=== PATIENT | male | born 1940 ===

== ENCOUNTER 2016-12-04 10:25 | Inpatient (IN) | payer OTHER, SELFPAY ==
[2016-12-04 10:25] VITALS: BMI 32.8
[2016-12-04] MEDS ORDERED: Albuterol-Ipratrop 3 mg / 0.5 (3 ml) UD IH STA (10:54)
[2016-12-04] MEDS ORDERED: Albuterol-Ipratrop 3 mg / 0.5 (3 ml) UD INH STA ×2 (10:54→10:55)
[2016-12-04] MEDS ORDERED: Sodium Chloride 0.9% 500 ML IV STA (10:54)
--- NOTE | 2016-12-04 10:58 | ED PDOC ---
HPI: SOB/CHF/COPD Time Seen by Provider: 12/04/16 10:45 Chief Complaint (Nursing): Shortness Of Breath Chief Complaint (Provider): Shortness Of Breath History Per: Patient, Family () History/Exam Limitations: no limitations Onset/Duration Of Symptoms: Days (x5 days) Current Symptoms Are (Timing): Still Present Additional Complaint(s): 76 y/o male with a past medical history of hypertension and pulmonary fibrosis who presents to the emergency department accompanied by with a complaint of shortness of breath x5 days. Associated with chest pain, cough, headache ( not the worst experienced and only after coughing), sputum (white), generalized weakness, 4 episodes of diarrhea (non-bloody), 2 episodes of vomiting (non- bloody), nausea and loss of appetite. PMD: [facility] Past Medical History Reviewed: Historical Data, Nursing Documentation, Vital Signs Vital Signs: Last Vital Signs Temp 97.6 F 12/04/16 10:36 Pulse 81 12/04/16 10:36 Resp 26 H 12/04/16 10:56 BP 140/78 12/04/16 10:56 Pulse Ox 96 12/04/16 11:38 - Medical History PMH: HTN, Hypercholesterolemia Other PMH: pulm fibrosis - Family History Family History: States: Unknown Family Hx - Living Arrangements Living Arrangements: With Family - Social History Current smoker - smoking cessation education provided: No Alcohol: Social Drugs: Denies - Immunization History Hx Tetanus Toxoid Vaccination: No Hx Influenza Vaccination: No Hx Pneumococcal Vaccination: No - Home Medications Home Medications: Ambulatory Orders Medication Instructions Recorded levoFLOXacin [Levaquin] 750 mg PO DAILY #7 tab 10/04/16 - Allergies Allergies/Adverse Reactions: Allergies Allergy/AdvReac Type Severity Reaction Status Date / Time No Known Allergies Allergy Verified 12/04/16 10:40 Review of Systems ROS Statement: Except As Marked, All Systems Reviewed And Found Negative Constitutional: Positive for: Weakness (Generalized), Other (Loss of appetite) Cardiovascular: Positive for: Chest Pain Respiratory: Positive for: Cough, Shortness of Breath, Sputum (White) Gastrointestinal: Positive for: Nausea, Vomiting, Diarrhea. Negative for: Hematochezia, Hematemesis Neurological: Positive for: Headache (Mild, not the worse experienced and only after he coughs) Physical Exam - Reviewed Nursing Documentation Reviewed: Yes Vital Signs Reviewed: Yes - Physical Exam Appears: Positive for: Uncomfortable Head Exam: Positive for: ATRAUMATIC, NORMOCEPHALIC Skin: Positive for: Normal Color, Warm, Dry Eye Exam: Positive for: Normal appearance, EOMI, PERRL ENT: Positive for: Nasal Congestion. Negative for: Pharyngeal Erythema Neck: Positive for: Normal, Supple Cardiovascular/Chest: Positive for: Regular Rate, Rhythm, Chest Non Tender. Negative for: Edema, Murmur Respiratory: Positive for: Decreased Breath Sounds (and course bilaterally at the bases). Negative for: Accessory Muscle Use, Wheezing, Respiratory Distress Gastrointestinal/Abdominal: Positive for: Normal Exam, Soft. Negative for: Tenderness Back: Positive for: Normal Inspection. Negative for: L CVA Tenderness, R CVA Tenderness Extremity: Positive for: Normal ROM. Negative for: Tenderness, Pedal Edema, Swelling Neurologic/Psych: Positive for: Alert, Oriented. Negative for: Motor/Sensory Deficits - Laboratory Results Result Diagrams: 12/04/16 11:00 12/04/16 11:00 Interpretation Of Abn Labs: 13 wbc - ECG ECG: Positive for: Interpreted By Me, Viewed By Me Interpretation Of Abn EKG: PACs sinus O2 Sat by Pulse Oximetry: 96 (RA) Pulse Ox Interpretation: Normal - Radiology X-Ray: Interpreted by Me, Viewed By Me, Read By Radiologist X-Ray Interpretation: Infiltrates (RML) - Progress ED Course And Treament: 1152: Stable. AAOX3. Breathing better. Pneumonia, sepsis. Has worsening pulm fibrosis. Will need admit for tx. - Critical Care Total Time (In Min): 30 Documented Critical Care: Time excludes all time spent performint seperately billable procedures Medical Decision Making Medical Decision Making: Time: 10:45 Initial impression: Evaluation of Dyspnea Initial plan: --Arterial Blood Gas Shock --Electrocardiogram Stat --B-Type Natriuretic Peptide --COMP Metabolic Panel --Magnesium Stat --Phosphorous Stat --Troponin I Stat --EKG-ED (EDNURTX) Stat --CBC w/ differential --Partial Thromboplastin Time (COAG) --Prothrombin Time (COAG) --Chest Portable (RAD) --Duoneb 3mg/0.5mg (3ml) UD 3ml IN --Duoneb 3mg/0.5mg (3ml) UD 3ml IN --Duoneb 3mg/0.5mg (3ml) UD 3ml IN --Sodium Chloride 500 ml iV 100 mls/hr --Methylprednisolone 125 mg IVP --Blood Culture Stat --Urine Culture Stat --Cage Maker CONT --Vital Signs Q15M --Peak Flow Pre/Post TX --Urinalysis Stat --Revaluation Time: 11:28 --Chest X-ray FINDINGS: LUNGS: Diffuse interstitial infiltrate. More focal opacity in the right upper lobe abutting the minor fissure. This is unchanged from the prior examination. Possible pneumonia. No other focal opacity. PLEURA: No significant pleural effusion identified, no pneumothorax apparent. CARDIOVASCULAR: Normal. OSSEOUS STRUCTURES: No significant abnormalities. VISUALIZED UPPER ABDOMEN: Normal. OTHER FINDINGS: None. IMPRESSION: Diffuse interstitial infiltrate. More focal opacity in right upper lobe unchanged from 11/26/2016. Possible pneumonia. Scribe Attestation: Documented by Anh Kothari, acting as a scribe for Pradip Suarez MD. Provider Scribe Attestation: All medical record entries made by the Scribe were at my direction and personally dictated by me. I have reviewed the chart and agree that the record accurately reflects my personal performance of the history, physical exam, medical decision making, and the department course for this patient. I have also personally directed, reviewed, and agree with the discharge instructions and disposition. Disposition - Clinical Impression Clinical Impression: Sepsis, Pneumonia - Patient ED Disposition Is Patient to be Admitted: Yes Counseled Patient/Family Regarding: Studies Performed, Diagnosis - Disposition Disposition Time: 12:22 Condition: FAIR - Pt Status Changed To: Hospital Disposition Of: Inpatient - Admit Certification Admit to Inpatient:: After my assessment, the patient will require hospitalization for at least two midnights. This is because of the severity of symptoms shown, intensity of services needed, and/or the medical risk in this patient being treated as an outpatient. - POA Present On Arrival: None Core Measure Indicators: Pneumonia
[2016-12-04 11:18] LABS: ABG ALLEN TEST YES; ARTERIAL BLOOD GAS HCO3 28.7 mmol/L (21-28); ARTERIAL BLOOD GAS MODE NC; ARTERIAL BLOOD GAS PO2 106 mm/Hg (80-100)
[2016-12-04 11:21] LABS: BASO # 0.1 K/uL (0.0-0.2); BASO % 0.6 % (0.0-2.0); EOS # 0.3 K/uL (0.0-0.7); EOS % 2.3 % (0.0-4.0); HEMATOCRIT 37.2 % (35.0-51.0); LYMPH # 2.1 K/uL (1.0-4.3); LYMPH % 16.4 % (20.0-40.0); MEAN CELL VOLUME 93.7 fl (80.0-94.0); MEAN CORPUSCULAR HEMOGLOBIN 31.2 pg (27.0-31.0); MEAN CORPUSCULAR HGB CONC 33.3 g/dL (33.0-37.0); MONO # 0.9 K/uL (0.0-0.8); MONO % 6.7 % (0.0-10.0); NEUT # 9.6 K/uL (1.8-7.0)
--- NOTE | 2016-12-04 11:30 | RAD ---
HISTORY: Sepsis Patient COMPARISON: 11/26/2016 FINDINGS: LUNGS: Diffuse interstitial infiltrate. More focal opacity in the right upper lobe abutting the minor fissure. This is unchanged from the prior examination. Possible pneumonia. No other focal opacity. PLEURA: No significant pleural effusion identified, no pneumothorax apparent. CARDIOVASCULAR: Normal. OSSEOUS STRUCTURES: No significant abnormalities. VISUALIZED UPPER ABDOMEN: Normal. OTHER FINDINGS: None. IMPRESSION: Diffuse interstitial infiltrate. More focal opacity in right upper lobe unchanged from 11/26/2016. Possible pneumonia.
[2016-12-04 11:34] LABS: ALB/GLOB RATIO 0.6 (1.0-2.1); ALKALINE PHOSPHATASE 104 U/L (38-126); ALT/SGPT 46 U/L (21-72); AST/SGOT 89 U/L (17-59); BILIRUBIN,TOTAL 1.4 mg/dl (0.2-1.3); BLOOD UREA NITROGEN 16 mg/dl (9-20); CARBON DIOXIDE 25 mmol/L (22-30); CHLORIDE 95 mmol/L (98-107); GFR AFRICAN-AMERICAN > 60; GLUCOSE,RANDOM 119 mg/dL (75-110); MAGNESIUM 2.3 MG/DL (1.6-2.3); PHOSPHOROUS 4.2 mg/dl (2.5-4.5); SODIUM 134 mmol/l (132-148); TOTAL PROTEIN 10.1 G/DL (6.3-8.2)
[2016-12-04 11:35] LABS: POTASSIUM 5.1 MMOL/L (3.6-5.0)
[2016-12-04 11:37] LABS: PARTIAL THROMBOPLASTIN TIME 30.9 SECONDS (23.3-32.5)
[2016-12-04 11:43] LABS: RBC URINE 2 /hpf (0-3); URINE BACTERIA RARE (<OCC); URINE BILIRUBIN NEGATIVE (NEGATIVE); URINE BLOOD NEGATIVE (NEGATIVE); URINE COLOR YELLOW (YELLOW); URINE GLUCOSE (UA) NEG (Normal); URINE KETONE NEGATIVE (NEGATIVE); URINE LEUKOCYTE ESTERASE NEG Leu/uL (Negative); URINE PROTEIN 30 mg/dL (NEGATIVE); WBC URINE 1 /hpf (0-5)
[2016-12-04] MEDS ORDERED: cefTRIAXone (Rocephin) 1 gm Inj IV ONE (11:53)
[2016-12-04] MEDS ORDERED: cefTRIAXone (Rocephin) 1 gm Inj ONE (11:59)
--- NOTE | 2016-12-04 12:54 | CP.PCM.HP ---
History of Present Illness - History of Present Illness History of Present Illness: 76M seen and examined at bedside, poor historian. BACKGROUND: States arrived from [place] 4yrs ago and denies TB exposure. Review of records show various ED visits for urinary and respiratory difficulties resulting in diagnoses of BPH (urine pathology negative for malignancy), ILD ( CXR/CT showing b/l symmetrical fibrosis with honeycombing and centrilobar emphysema). He has been seen at [facility], [place] and [facility]. Also, denied any medical problems other than "lungs" but records show HTN/BPH as well. 76M p/w difficulty breathing that has worsened over the past 4-5 days associated with a productive cough of whitish sputum. It has also been associated with sore throat, chills, never checked for fever, body aches, non- bloody diarrhea, nausea, and decreased appetite. He does experience mild chest discomfort on the right with deep inspiration. He denies sick contacts, recent travel, flu vaccine. PMD: [facility] PMH: ILD, BPH, HTN, Diverticulosis PSH: Denies PFH: NC ALL: NKDA Meds: Tylenol PRN Smoke: Denies ever Alcohol: Denies ever Drugs: Denies ever ED COURSE VS: 36.4- 81- 116/69- 20- 96%RA @ 1036, became tachypneic to 26, never tachy/ hypotensive/febrile CBC: mild leukocytosis, no anemia, no left shift but absolute neutrophils elevated CMP: mild hyperkalemia (hemolysis), elevated TBili- 1.4/AST-89 Coags: WNL AB.50/36/106/28.7/99.3/4.9 BCx: PENDING UCx: PENDING UA: Bld-2RBC, LE/Nitrate- neg/Protein- 30 Influenza: negative CXR: diffuse interstitial infiltrate, more focal opacity in RUL unchanged from , possible pneumonia EKG: NSR w/ PACs, HR- 63, no ST-T changes DuoNebs x3 Rocephin/Azithromycin Methylprednisolone Present on Admission - Present on Admission Any Indicators Present on Admission: No Review of Systems - Review of Systems Review of Systems: As per HPI Past Patient History - Past Social History Alcohol: Social Drugs: Denies - CARDIAC Hx Hypercholesterolemia: Yes Hx Hypertension: Yes - PSYCHIATRIC Hx Substance Use: No - ANESTHESIA Hx Anesthesia: No Hx Anesthesia Reactions: No Hx Malignant Hyperthermia: No Meds Allergies/Adverse Reactions: Allergies Allergy/AdvReac Type Severity Reaction Status Date / Time No Known Allergies Allergy Verified 12/04/16 10:40 Physical Exam - Constitutional Appears: Non-toxic, In Acute Distress (MILD) - Head Exam Head Exam: ATRAUMATIC, NORMAL INSPECTION - Eye Exam Eye Exam: EOMI, Normal appearance. absent: Conjunctival injection - ENT Exam ENT Exam: Mucous Membranes Moist, Normal Exam, Normal External Ear Exam, Normal Oropharynx, TM's Normal Bilaterally - Neck Exam Neck exam: Positive for: Full Rom, Normal Inspection. Negative for: Lymphadenopathy - Respiratory Exam Respiratory Exam: Rales (noted in b/l bases), NORMAL BREATHING PATTERN ( symmetrical, no retractions, tachypneic- 24). absent: Clear to Auscultation Bilateral (coarse breath sounds throughout with crackles, no discrete wheezing) - Cardiovascular Exam Cardiovascular Exam: REGULAR RHYTHM. absent: Tachycardia, Diastolic murmur, Gallop, JVD, Systolic Murmur - GI/Abdominal Exam GI & Abdominal Exam: Normal Bowel Sounds, Soft. absent: Hernia, Tenderness - Extremities Exam Extremities exam: Positive for: normal capillary refill, normal inspection, pedal pulses present. Negative for: pedal edema - Neurological Exam Neurological exam: Alert, Oriented x3 - Psychiatric Exam Psychiatric exam: Anxious, Normal Affect, Normal Mood - Skin Skin Exam: Normal Color, Warm Results - Vital Signs Recent Vital Signs: Last Vital Signs Temp 36.4 C 12/04/16 10:36 Pulse 81 12/04/16 10:36 Resp 26 H 12/04/16 10:56 BP 140/78 12/04/16 10:56 Pulse Ox 96 12/04/16 12:22 - Labs Result Diagrams: 12/04/16 11:00 12/04/16 11:00 Assessment & Plan (1) Shortness of breath Assessment and Plan: Whitish sputum, afebrile, absent tachycardia, CXR "unchanged" but "possible pneumonia", continuous, repeated cough that worsens with lying flat with associated bodyaches and diarrhea with underlying ILD. Most c/w viral >> bacterial vs. ?pertussis infection. Breath sounds most c/w ILD not pneumonia and the mild leukocytosis (2/2 steroids?) with elevated Tbili/AST likely stress response. Patient also requiring oxygen which, if bacterial, would generally be associated with worse clinical picture/leukocytosis/CXR findings. - Rocephin/Azithro at this time - Procalcitonin STAT, rpt 2 days after - DuoNebs Q4H PRN - Mucomyst Q6H PRN - Incentive Spirometry - Oxygen, 2L - Prednisone 20mg, PO, Daily - Pertussis Cx/PCR if no improvement - BCx- PENDING Status: Acute (2) Sepsis Assessment and Plan: Overall unclear if sepsis at this time. Leukocytosis may be 2/2 to steroid administration, normothermic, normotensive, no tachycardia, RR >20 likely due to underlying ILD with viral etiology cough. Will continue to monitor and treat broadly at this time. - Rocephin/Azithro at this time - Procalcitonin STAT, rpt 2 days after - DuoNebs Q4H PRN - Mucomyst Q6H PRN - Incentive Spirometry - Oxygen, 2L - Prednisone 20mg, PO, Daily - Pertussis Cx/PCR if no improvement - BCx- PENDING Status: Acute (3) HTN (hypertension) Assessment and Plan: Well- controlled. - Enalapril 5mg, PO, Daily Status: Acute (4) BPH (benign prostatic hypertrophy) Assessment and Plan: Well-controlled - Flomax 0.4mg, PO, HS Status: Acute (5) Interstitial lung disease Assessment and Plan: Chronic - Pulmonary Consult (Dr Santos) - Prednisone 20mg, PO, Daily - Oxygen, 2L NC - Monitor Status: Acute (6) DVT prophylaxis Assessment and Plan: - Lovenox 40mg, SC, HS Status: Acute
[2016-12-04] MEDS ORDERED: Albuterol-Ipratrop 3 mg / 0.5 (3 ml) UD INH PRN (13:09)
[2016-12-04] MEDS ORDERED: Promethazine/Cod 6.25mg-10mg/5ml Syr UD PO ONE (13:42)
[2016-12-04] MEDS: Enoxaparin 40 mg Syringe SC SCH (22:06)
[2016-12-04] MEDS: Promethazine/Cod 6.25mg-10mg/5ml Syr UD PO PRN (23:20)
[2016-12-05] MEDS: Promethazine/Cod 6.25mg-10mg/5ml Syr UD PO PRN ×3 (03:18→20:44)
[2016-12-05 05:28] LABS: BASO # 0.1 K/uL (0.0-0.2); BASO % 0.7 % (0.0-2.0); HEMATOCRIT 36.7 % (35.0-51.0); LYMPH % 5.8 % (20.0-40.0); MEAN CELL VOLUME 93.5 fl (80.0-94.0); MEAN CORPUSCULAR HEMOGLOBIN 30.8 pg (27.0-31.0); MEAN CORPUSCULAR HGB CONC 32.9 g/dL (33.0-37.0); MEAN PLATELET VOLUME 8.9 fl (7.2-11.7); MONO # 0.5 K/uL (0.0-0.8); MONO % 3.1 % (0.0-10.0); NEUT # 15.7 K/uL (1.8-7.0); NEUT % 90.4 % (50.0-75.0); PLATELET COUNT 259 K/uL (130-400); WHITE BLOOD COUNT 17.4 K/uL (4.8-10.8)
[2016-12-05 05:35] LABS: ALB/GLOB RATIO 0.6 (1.0-2.1); ALKALINE PHOSPHATASE 97 U/L (38-126); ALT/SGPT 36 U/L (21-72); AST/SGOT 42 U/L (17-59); BILIRUBIN,TOTAL 0.5 mg/dl (0.2-1.3); BLOOD UREA NITROGEN 21 mg/dl (9-20); CARBON DIOXIDE 28 mmol/L (22-30); CHLORIDE 99 mmol/L (98-107); GFR AFRICAN-AMERICAN > 60; GLUCOSE,RANDOM 176 mg/dL (75-110); POTASSIUM 4.4 MMOL/L (3.6-5.0); SODIUM 138 mmol/l (132-148); TOTAL PROTEIN 8.8 G/DL (6.3-8.2)
[2016-12-05 06:52] LABS: NEUTROPHIL 92 % (42-75); TOTAL CELLS COUNTED 100
[2016-12-05] MEDS: Acetylcysteine 10% 4 ML IH SCH ×2 (07:29→19:08)
[2016-12-05] MEDS: Azithromycin 500 MG in Sodium Chloride 0.9% 250 ML IVPB SCH (09:00)
--- NOTE | 2016-12-05 09:16 | CARD ---
APPROVED REPORT EKG Measurement Heart [id number] <Conclusion> Sinus rhythm with premature atrial contractions Abnormal ECG baseline artefact
--- NOTE | 2016-12-05 10:18 | CP.PCM.PN ---
Subjective - Date & Time of Evaluation Date of Evaluation: 12/05/16 Time of Evaluation: 10:11 - Subjective Subjective: The patient is a 76 y/o man w/ pmh of interstitial lung disease, BPH, HTN, and diverticulosis presents with dyspnea and productive cough for 4-5 days prior to admission. The patient was seen this morning. There are no acute events overnight. The patient is not in acute distress. The patient was sitting and eating his breakfast with no difficulties or discomfort. The patient was not coughing during interview and examination this morning. The patient denies headaches, chest pain, abdominal pain, nausea, vomiting, and fevers. Objective - Vital Signs/Intake and Output Vital Signs (last 24 hours): Temp Pulse Resp BP Pulse Ox 97.2 F L 62 20 125/62 97 12/05/16 08:18 12/05/16 08:18 12/05/16 08:18 12/05/16 08:18 12/05/16 08:18 - Medications Medications: Current Medications Acetylcysteine (Mucomyst 10% 4ml) 2 ml IH RBID [facility] Last Admin: 12/05/16 07:29 Dose: 2 ml Albuterol/Ipratropium (Duoneb 3 Mg/0.5 Mg (3 Ml) Ud) 3 ml INH RQ4 PRN PRN Reason: Shortness of Breath Last Admin: 12/05/16 07:29 Dose: 3 ml Enalapril Maleate (Vasotec) 5 mg PO DAILY [facility] Last Admin: 12/05/16 10:00 Dose: Not Given Enoxaparin Sodium (Lovenox) 40 mg SC [facility] PRN Reason: Protocol Last Admin: 12/04/16 22:06 Dose: 40 mg Azithromycin 500 mg/ Sodium (Chloride) 250 mls @ 250 mls/hr IVPB DAILY [facility] Ceftriaxone Sodium 1 gm/ (Sodium Chloride) 100 mls @ 100 mls/hr IVPB DAILY@ 1000 [facility] Prednisone (Prednisone Tab) 20 mg PO DAILY [facility] Last Admin: 12/05/16 09:40 Dose: 20 mg Promethazine HCl/Codeine (Phenergan/Codeine Oral Syrup) 10 ml PO Q4H PRN PRN Reason: Cough Last Admin: 12/05/16 03:18 Dose: 10 ml Tamsulosin HCl (Flomax) 0.4 mg PO HS BRIE Last Admin: 12/04/16 22:06 Dose: 0.4 mg - Labs Labs: 12/05/16 05:25 12/05/16 05:25 PT 11.2 SECONDS (9.6-11.2) 12/04/16 11:00 INR 1.08 (0.92-1.08) 12/04/16 11:00 APTT 30.9 SECONDS (23.3-32.5) 12/04/16 11:00 - Constitutional Appears: No Acute Distress - Head Exam Head Exam: ATRAUMATIC, NORMOCEPHALIC - Eye Exam Eye Exam: EOMI Pupil Exam: PERRL - ENT Exam ENT Exam: Mucous Membranes Moist - Respiratory Exam Respiratory Exam: Wheezes. absent: Accessory Muscle Use, Chest Wall Tenderness , Respiratory Distress Additional comments: transmitted upper airway sounds, scattered mild diffuse wheeze with expiration - Cardiovascular Exam Cardiovascular Exam: Irregular Rhythm. absent: Tachycardia - GI/Abdominal Exam GI & Abdominal Exam: Soft, Normal Bowel Sounds. absent: Distended, Tenderness - Extremities Exam Extremities Exam: Normal Inspection. absent: Calf Tenderness, Tenderness - Neurological Exam Neurological Exam: Alert, Awake - Skin Skin Exam: Dry, Intact, Normal Color, Warm Assessment and Plan - Assessment and Plan (Free Text) Assessment: The patient is a 76 y/o man w/ pmh of interstitial lung disease, BPH, HTN, and diverticulosis presents with dyspnea and productive cough for 4-5 days prior to admission. Plan: (1) Shortness of breath - Whitish sputum, afebrile, absent tachycardia, CXR "unchanged" but "possible pneumonia", continuous, repeated cough that worsens with lying flat with associated bodyaches and diarrhea with underlying ILD. Most c/w viral >> bacterial vs. ?pertussis infection. Breath sounds most c/w ILD not pneumonia and the mild leukocytosis (2/2 steroids?) with elevated Tbili/AST likely stress response. Patient also requiring oxygen which, if bacterial, would generally be associated with worse clinical picture/leukocytosis/CXR findings. - Rocephin 1 gm IV daily - Azithromycin 500 mg IV daily - Procalcitonin: 0.05, rpt 2 days after - promethazine/codeine 10 mL PO Q4h prn for cough - DuoNebs Q6H BRIE - Mucomyst Q6H PRN - Incentive Spirometry - Oxygen, 2L - MethylPrednisolone 40mg IV Q12H - Pertussis Cx/PCR if no improvement - BCx- PENDING (2) Sepsis - Overall unclear if sepsis at this time. Leukocytosis may be 2/2 to steroid administration, normothermic, normotensive, no tachycardia, RR >20 likely due to underlying ILD with viral etiology cough. Will continue to monitor and treat broadly at this time. - Procalcitonin: 0.05, rpt 2 days after - Rocephin/Azithro at this time - Procalcitonin STAT, rpt 2 days after - DuoNebs Q4H PRN - Mucomyst Q6H PRN - Incentive Spirometry - Oxygen, 2L - MethylPrednisolone 40mg IV Q12H - Pertussis Cx/PCR if no improvement - BCx- PENDING (3) HTN (hypertension) - Well controlled. - Enalapril 5mg, PO, Daily (4) BPH (benign prostatic hypertrophy) - Well-controlled - Flomax 0.4mg, PO, HS (5) Interstitial lung disease - Chronic - Pulmonary Consult (Dr Santos) - MethylPrednisolone 40mg IV Q12H - Oxygen, 2L NC PRN - Monitor - O2 97% room air (6) DVT prophylaxis - Lovenox 40mg, SC, HS
[2016-12-05] MEDS: methylPREDNISolone 40 MG in Sodium Chloride 0.9% 50 ML IV SCH (13:30)
[2016-12-05] MEDS: Albuterol-Ipratrop 3 mg / 0.5 (3 ml) UD INH SCH (19:09)
--- NOTE | 2016-12-05 19:56 | CP.PCM.CON ---
History of Present Illness - History of Present Illness History of Present Illness: Call in Pulmonary consult for a 76 y/o M, admitted to hospital for SOB, CERVANTES, Orthopnea, onset one week [employer], using medications over the counter with no relief. Pt with SOB associated to productive cough, whitish sputum. non bloody. Worsening symptoms: Nasal congestion, generalized weakness, loss of appetite. Aggravated factor: R chest pain with cough and deep inspiration. 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 Since 1962 he begins having chronic dry cough, and has 6-7 yrs having recurrent Bronchitis. He came to [facility] for first time in in 2012 but in 2014 came to live permanently. No Hx of Asthma, no family Hx of Pulmonary disease. Denied: Fever, chills, abdominal pain, n/v, CP, headache, sick contact. PMHx: HTN, Hypercholesterolemia, BPH, UTI, Chronic L shoulder pain 2nd to dislocation, Diverticulosis, Varicose Veins. CXR shows: Focal opacity RUL, possible PNA. Diffused interstitial infiltrate. EKG= PACs sinus. CT Chest on 11/29/16 showing: ILD. Review of Systems - Constitutional Constitutional: Weakness - EENT Eyes: Other (low vision) Ears: Other (negative) Nose/Mouth/Throat: Other (negative) - Cardiovascular Cardiovascular: Other (negative) - Respiratory Respiratory: Cough, Dyspnea, Dyspnea on Exertion, Pain on Inspiration, Pain with Coughing - Gastrointestinal Gastrointestinal: Diarrhea - Genitourinary Genitourinary: Other (negative) - Musculoskeletal Musculoskeletal: Other (negative) - Integumentary Integumentary: Other (negative) - Neurological Neurological: Other (negative) - Psychiatric Psychiatric: Other (negative) - Endocrine Endocrine: Other (negative) - Hematologic/Lymphatic Hematologic: Other (negative) Past Patient History - Past Medical History & Family History Pertinent Family History: No family Hx of Pulmonary disease. - Past Social History Alcohol: Social Drugs: Denies Home Situation {Lives}: With Family - CARDIAC Hx Cardiac Disorders: Yes Hx Hypercholesterolemia: Yes Hx Hypertension: Yes - PULMONARY Hx Respiratory Disorders: Yes Hx Pneumonia: Yes Other/Comment: pulmonary fibrosis - NEUROLOGICAL Hx Neurological Disorder: No - HEENT Hx HEENT Problems: No - RENAL Other/Comment: pt stated kidney problem unknown to pt. - ENDOCRINE/METABOLIC Hx Endocrine Disorders: No - HEMATOLOGICAL/ONCOLOGICAL Hx Blood Disorders: No - INTEGUMENTARY Hx Dermatological Problems: No - MUSCULOSKELETAL/RHEUMATOLOGICAL Hx Musculoskeletal Disorders: Yes Hx Falls: Yes Other/Comment: left shoulder dislocation and chronic pain. - GASTROINTESTINAL Hx Gastrointestinal Disorders: No - GENITOURINARY/GYNECOLOGICAL Hx Genitourinary Disorders: Yes Hx Urinary Tract Infection: Yes - PSYCHIATRIC Hx Psychophysiologic Disorder: No Hx Substance Use: No - SURGICAL HISTORY Hx Surgeries: No - ANESTHESIA Hx Anesthesia: No Hx Anesthesia Reactions: No Hx Malignant Hyperthermia: No Meds Home Medications: Home Medication List Medication Instructions Recorded Confirmed Type Albuterol HFA [Ventolin HFA 90 2 puff IH [id number] PRN #1 puff 12/06/16 Rx mcg/actuation (8 g)] Hydrochlorothiazide [Microzide] 12.5 mg PO DAILY #30 cap 12/06/16 Rx predniSONE [predniSONE Tab] 20 mg PO DAILY #5 tab 12/06/16 Rx Allergies/Adverse Reactions: Allergies Allergy/AdvReac Type Severity Reaction Status Date / Time No Known Allergies Allergy Verified 12/04/16 10:40 - Medications Medications: Current Medications Acetylcysteine (Mucomyst 10% 4ml) 2 ml IH RBID [facility] Last Admin: 12/05/16 19:08 Dose: 2 ml Albuterol/Ipratropium (Duoneb 3 Mg/0.5 Mg (3 Ml) Ud) 3 ml INH RQ6 [facility] Last Admin: 12/05/16 19:09 Dose: 3 ml Enalapril Maleate (Vasotec) 5 mg PO DAILY [facility] Last Admin: 12/05/16 16:14 Dose: 5 mg Enoxaparin Sodium (Lovenox) 40 mg SC HS [facility] PRN Reason: Protocol Last Admin: 12/04/16 22:06 Dose: 40 mg Azithromycin 500 mg/ Sodium (Chloride) 250 mls @ 250 mls/hr IVPB DAILY [facility] Last Admin: 12/05/16 09:00 Dose: 250 mls/hr Ceftriaxone Sodium 1 gm/ (Sodium Chloride) 100 mls @ 100 mls/hr IVPB DAILY@ 1000 [facility] Last Admin: 12/05/16 10:00 Dose: 100 mls/hr Methylprednisolone 40 mg/ (Sodium Chloride) 50 mls @ 100 mls/hr IV Q12H [facility] Last Admin: 12/05/16 13:30 Dose: 100 mls/hr Promethazine HCl/Codeine (Phenergan/Codeine Oral Syrup) 10 ml PO Q4H PRN PRN Reason: Cough Last Admin: 12/05/16 11:04 Dose: 10 ml Tamsulosin HCl (Flomax) 0.4 mg PO HS [facility] Last Admin: 12/04/16 22:06 Dose: 0.4 mg Physical Exam - Constitutional Appears: No Acute Distress - Head Exam Head Exam: NORMAL INSPECTION - Eye Exam Eye Exam: PERRL - ENT Exam ENT Exam: Normal Oropharynx - Neck Exam Neck exam: Positive for: Normal Inspection - Respiratory Exam Respiratory Exam: Decreased Breath Sounds (at bases), Wheezes (scattered) Additional comments: Dry crackles at bases - Cardiovascular Exam Cardiovascular Exam: REGULAR RHYTHM - GI/Abdominal Exam GI & Abdominal Exam: Normal Bowel Sounds, Soft - Extremities Exam Additional comments: Varicose Veins - Back Exam Back exam: NORMAL INSPECTION - Neurological Exam Neurological exam: Alert, Oriented x3 Additional comments: Generalized weakness. - Psychiatric Exam Psychiatric exam: Normal Mood - Skin Skin Exam: Warm Results - Vital Signs Recent Vital Signs: Last Vital Signs Temp 97.4 F L 12/05/16 15:36 Pulse 61 12/05/16 15:36 Resp 20 12/05/16 15:36 BP 162/69 H 12/05/16 15:36 Pulse Ox 96 12/05/16 15:36 reviewed J.P. - Labs Result Diagrams: 12/05/16 05:25 12/05/16 05:25 Labs: Laboratory Results - last 24 hr 12/04/16 12/04/16 12/05/16 15:00 19:48 05:25 WBC 17.4 H RBC 3.92 L Hgb 12.1 Hct 36.7 MCV 93.5 MCH 30.8 MCHC 32.9 L RDW 13.0 Plt Count 259 MPV 8.9 Neut % (Auto) 90.4 H Lymph % (Auto) 5.8 L [place] % (Auto) 3.1 Eos % (Auto) 0.0 Baso % (Auto) 0.7 Neut # 15.7 H Lymph # 1.0 [place] # 0.5 Eos # 0.0 Baso # 0.1 Neutrophils % (Manual) 92 H Band Neutrophils % 2 Lymphocytes % (Manual) 4 L Monocytes % (Manual) 2 Platelet Estimate Normal Anisocytosis (manual) Slight Sodium 138 Potassium 4.4 Chloride 99 Carbon Dioxide 28 Anion Gap 16 BUN 21 H Creatinine 0.7 L Est GFR ( Amer) > 60 Est GFR (Non-Af Amer) > 60 Random Glucose 176 H Calcium 9.0 Total Bilirubin 0.5 AST 42 ALT 36 Alkaline Phosphatase 97 Troponin I < 0.0120 < 0.0120 Total Protein 8.8 H Albumin 3.4 L Globulin 5.4 H Albumin/Globulin Ratio 0.6 L Procalcitonin < 0.05 L reviewed J.P. - EKG Data EKG comments: reviewed J.P. - Imaging and Cardiology Chest x-ray Status: Report reviewed by me (J.P.) Assessment & Plan (1) COPD exacerbation Status: Acute Priority: High (2) Pulmonary fibrosis Status: Chronic Priority: High Comment: Instertiitial , 2nd to industrial exposure - Assessment and Plan (Free Text) Plan: Discussed with residents work up for ILD in [facility]. Agree with Tx Zithromax, Solumedrol, Duoneb, Phenergan with Co, Mucomyst. - Date & Time Date: 12/05/16 Time: 12:00
[2016-12-05] MEDS: Enoxaparin 40 mg Syringe SC SCH (22:48)
[2016-12-06] MEDS: Albuterol-Ipratrop 3 mg / 0.5 (3 ml) UD INH SCH ×3 (01:01→13:25)
[2016-12-06] MEDS: methylPREDNISolone 40 MG in Sodium Chloride 0.9% 50 ML IV SCH (02:00)
[2016-12-06] MEDS: Promethazine/Cod 6.25mg-10mg/5ml Syr UD PO PRN ×2 (03:10→10:20)
[2016-12-06 08:13] VITALS: RESP 20
[2016-12-06] MEDS: Acetylcysteine 10% 4 ML IH SCH (08:17)
[2016-12-06] MEDS: Azithromycin 500 MG in Sodium Chloride 0.9% 250 ML IVPB SCH (10:10)
[2016-12-06 12:19] VITALS: BP 124/58; PULSE 60; TEMP 97.2; O2SAT 97
--- NOTE | 2016-12-06 14:40 | CP.PCM.DIS ---
Provider - Provider Date of Admission: 12/04/16 12:22 Attending physician: Carl Hayden MD Time Spent in preparation of Discharge (in minutes): 30 Diagnosis - Discharge Diagnosis (1) Shortness of breath Status: Acute Hospital Course - Lab Results Lab Results: Most Recent Lab Values WBC 17.4 K/uL (4.8-10.8) H 12/05/16 05:25 RBC 3.92 Mil/uL (4.40-5.90) L 12/05/16 05:25 Hgb 12.1 g/dL (12.0-18.0) 12/05/16 05:25 Hct 36.7 % (35.0-51.0) 12/05/16 05:25 MCV 93.5 fl (80.0-94.0) 12/05/16 05:25 MCH 30.8 pg (27.0-31.0) 12/05/16 05:25 MCHC 32.9 g/dL (33.0-37.0) L 12/05/16 05:25 RDW 13.0 % (11.5-14.5) 12/05/16 05:25 Plt Count 259 K/uL (130-400) 12/05/16 05:25 MPV 8.9 fl (7.2-11.7) 12/05/16 05:25 Neut % (Auto) 90.4 % (50.0-75.0) H 12/05/16 05:25 Lymph % (Auto) 5.8 % (20.0-40.0) L 12/05/16 05:25 [place] % (Auto) 3.1 % (0.0-10.0) 12/05/16 05:25 Eos % (Auto) 0.0 % (0.0-4.0) 12/05/16 05:25 Baso % (Auto) 0.7 % (0.0-2.0) 12/05/16 05:25 Neut # 15.7 K/uL (1.8-7.0) H 12/05/16 05:25 Lymph # 1.0 K/uL (1.0-4.3) 12/05/16 05:25 [place] # 0.5 K/uL (0.0-0.8) 12/05/16 05:25 Eos # 0.0 K/uL (0.0-0.7) 12/05/16 05:25 Baso # 0.1 K/uL (0.0-0.2) 12/05/16 05:25 Neutrophils % (Manual) 92 % (42-75) H 12/05/16 05:25 Band Neutrophils % 2 % (0-2) 12/05/16 05:25 Lymphocytes % (Manual) 4 % (20-50) L 12/05/16 05:25 Monocytes % (Manual) 2 % (0-10) 12/05/16 05:25 Platelet Estimate Normal (NORMAL) 12/05/16 05:25 Anisocytosis (manual) Slight 12/05/16 05:25 PT 11.2 SECONDS (9.6-11.2) 12/04/16 11:00 INR 1.08 (0.92-1.08) 12/04/16 11:00 APTT 30.9 SECONDS (23.3-32.5) 12/04/16 11:00 pCO2 36 mm/Hg (35-45) 12/04/16 11:10 pO2 106 mm/Hg (80-100) H 12/04/16 11:10 HCO3 28.7 mmol/L (21-28) H 12/04/16 11:10 ABG pH 7.50 (7.35-7.45) H 12/04/16 11:10 ABG Total CO2 29.2 mmol/L (22-28) H 12/04/16 11:10 ABG O2 Saturation 99.3 % (95-98) H 12/04/16 11:10 ABG Base Excess 4.9 mmol/L (-2.0-3.0) H 12/04/16 11:10 Awais Test Yes 12/04/16 11:10 ABG Potassium 4.2 mmol/L (3.6-5.2) 12/04/16 11:10 A-a O2 Difference 49.0 mm/Hg 12/04/16 11:10 Sodium 132.0 mmol/L (132-148) 12/04/16 11:10 Chloride 102.0 mmol/L (98-107) 12/04/16 11:10 Glucose 116 mg/dL (75-110) H 12/04/16 11:10 Lactate 0.7 mmol/L (0.7-2.1) 12/04/16 11:10 Vent Mode Nc 12/04/16 11:10 FiO2 28.0 % 12/04/16 11:10 Sodium 138 mmol/l (132-148) 12/05/16 05:25 Potassium 4.4 MMOL/L (3.6-5.0) 12/05/16 05:25 Chloride 99 mmol/L (98-107) 12/05/16 05:25 Carbon Dioxide 28 mmol/L (22-30) 12/05/16 05:25 Anion Gap 16 (10-20) 12/05/16 05:25 BUN 21 mg/dl (9-20) H 12/05/16 05:25 Creatinine 0.7 mg/dL (0.8-1.5) L 12/05/16 05:25 Est GFR ( Amer) > 60 12/05/16 05:25 Est GFR (Non-Af Amer) > 60 12/05/16 05:25 Random Glucose 176 mg/dL (75-110) H 12/05/16 05:25 Calcium 9.0 mg/dL (8.4-10.2) 12/05/16 05:25 Phosphorus 4.2 mg/dl (2.5-4.5) 12/04/16 11:00 Magnesium 2.3 MG/DL (1.6-2.3) 12/04/16 11:00 Total Bilirubin 0.5 mg/dl (0.2-1.3) 12/05/16 05:25 AST 42 U/L (17-59) 12/05/16 05:25 ALT 36 U/L (21-72) 12/05/16 05:25 Alkaline Phosphatase 97 U/L (38-126) 12/05/16 05:25 Troponin I < 0.0120 ng/mL (0.00-0.120) 12/05/16 05:25 NT-Pro-B Natriuret Pep 119 pg/ml (0-900) 12/04/16 11:00 Total Protein 8.8 G/DL (6.3-8.2) H 12/05/16 05:25 Albumin 3.4 g/dL (3.5-5.0) L 12/05/16 05:25 Globulin 5.4 gm/dL (2.2-3.9) H 12/05/16 05:25 Albumin/Globulin Ratio 0.6 (1.0-2.1) L 12/05/16 05:25 Procalcitonin < 0.05 NG/ML (0.19-0.49) L 12/04/16 15:00 Arterial Blood Potassium 4.2 mmol/L (3.6-5.2) 12/04/16 11:10 Urine Color Yellow (YELLOW) 12/04/16 11:20 Urine Clarity Slighty-cloudy (Clear) 12/04/16 11:20 Urine pH 6.0 (5.0-8.0) 12/04/16 11:20 Ur Specific [place] 1.014 (1.003-1.030) 12/04/16 11:20 Urine Protein 30 mg/dL (NEGATIVE) 12/04/16 11:20 Urine Glucose (UA) Neg mg/dL (Normal) 12/04/16 11:20 Urine Ketones Negative mg/dL (NEGATIVE) 12/04/16 11:20 Urine Blood Negative (NEGATIVE) 12/04/16 11:20 Urine Nitrate Negative (NEGATIVE) 12/04/16 11:20 Urine Bilirubin Negative (NEGATIVE) 12/04/16 11:20 Urine Urobilinogen 4.0 mg/dL (0.2-1.0) 12/04/16 11:20 Ur Leukocyte Esterase Neg Nasreen/uL (Negative) 12/04/16 11:20 Urine RBC (Auto) 2 /hpf (0-3) 12/04/16 11:20 Urine Microscopic WBC 1 /hpf (0-5) 12/04/16 11:20 Urine Bacteria Rare (<OCC) 12/04/16 11:20 Influenza Typ A,B (EIA) Negative for flu a/b (NEGATIVE) 12/04/16 12:00 - Hospital Course Hospital Course: The patient is a 76 y/o man w/ pmh of interstitial lung disease, BPH, HTN, and diverticulosis presents with dyspnea and productive cough for 4-5 days prior to admission. The patient was given duonebs x1, ceftriaxone x1, azithromycin x1, and methylprednisolone in ED. Patient also was having recurrent coughing fits that produced clear/white sputum at times, patient relieved with promethazine/ codeine. CXR showed chronic fibrosis and possible pneumonia. Patient improved the next day, afebrile, and vitals stable. Patient seen by pulmonary consult. Patient much improved and saturating well on room air. The patient is to follow up with Dr. Gomez in [facility] on 12/16/2016 at 13:[address] Bro for pulmonary. The patient has been seen, examined, and deemed medically fit with no contraindication for discharge home. Patient to be discharged on hydrochlorothiazide 12.5 mg PO daily, prednisone 20 mg PO daily for 5 days, and ventolin HFA 2 puffs Q6h prn. - Date & Time of H&P Date of H&P: 12/04/16 Time of H&P: 12:54 Discharge Exam - Head Exam Head Exam: ATRAUMATIC, NORMOCEPHALIC - Eye Exam Eye Exam: EOMI Pupil Exam: PERRL - ENT Exam ENT Exam: Mucous Membranes Moist - Respiratory Exam Respiratory Exam: Decreased Breath Sounds, Clear to PA & Lateral. absent: Accessory Muscle Use, Chest Wall Tenderness, Prolonged Expiratory Phase, Wheezes , Respiratory Distress Additional comments: mild bibasilar crackles and reduced breath sounds - Cardiovascular Exam Cardiovascular Exam: REGULAR RHYTHM. absent: Tachycardia - GI/Abdominal Exam GI & Abdominal Exam: Normal Bowel Sounds, Soft. absent: Distended, Tenderness - Extremities Exam Extremities exam: full ROM, normal inspection - Neurological Exam Neurological exam: Alert, Normal Gait, Oriented x3 - Skin Skin Exam: Dry, Intact, Normal Color, Warm Discharge Plan - Discharge Medications Prescriptions: Albuterol HFA [Ventolin HFA 90 mcg/actuation (8 g)] 2 puff IH [id number] PRN #1 puff PRN Reason: Wheezing Hydrochlorothiazide [Microzide] 12.5 mg PO DAILY #30 cap predniSONE [predniSONE Tab] 20 mg PO DAILY #5 tab - Follow Up Plan Condition: IMPROVED Disposition: HOME/ ROUTINE Referrals: Anatloiy Bro MD [Medical Doctor] - Karlee Gomez MD [Resident] -
--- NOTE | 2016-12-06 14:40 | CP.PCM.PN ---
Subjective - Date & Time of Evaluation Date of Evaluation: 12/06/16 Time of Evaluation: 10:00 - Subjective Subjective: F/U COPD Exacerbation, ILD Cough improved , no SOb Objective - Vital Signs/Intake and Output Vital Signs (last 24 hours): Temp Pulse Resp BP Pulse Ox 97.2 F L 60 20 124/58 L 97 12/06/16 12:00 12/06/16 12:00 12/06/16 12:00 12/06/16 12:00 12/06/16 12:00 - Medications Medications: Current Medications Acetylcysteine (Mucomyst 10% 4ml) 2 ml IH RBID [facility] Last Admin: 12/06/16 08:17 Dose: 2 ml Albuterol/Ipratropium (Duoneb 3 Mg/0.5 Mg (3 Ml) Ud) 3 ml INH RQ6 [facility] Last Admin: 12/06/16 13:25 Dose: Not Given Enalapril Maleate (Vasotec) 5 mg PO DAILY [facility] Last Admin: 12/06/16 10:11 Dose: Not Given Enoxaparin Sodium (Lovenox) 40 mg SC [facility] PRN Reason: Protocol Last Admin: 12/05/16 22:48 Dose: 40 mg Azithromycin 500 mg/ Sodium (Chloride) 250 mls @ 250 mls/hr IVPB DAILY [facility] Last Admin: 12/06/16 10:10 Dose: 250 mls/hr Ceftriaxone Sodium 1 gm/ (Sodium Chloride) 100 mls @ 100 mls/hr IVPB DAILY@ 1000 [facility] Last Admin: 12/06/16 10:09 Dose: 100 mls/hr Methylprednisolone 40 mg/ (Sodium Chloride) 50 mls @ 100 mls/hr IV Q12H [facility] Last Admin: 12/06/16 02:00 Dose: 100 mls/hr Pneumococcal Polyvalent Vaccine (Pneumovax 23 Vaccine) 0.5 ml IM .ONCE ONE Stop: 12/06/16 15:01 Promethazine HCl/Codeine (Phenergan/Codeine Oral Syrup) 10 ml PO Q4H PRN PRN Reason: Cough Last Admin: 12/06/16 10:20 Dose: 10 ml Tamsulosin HCl (Flomax) 0.4 mg PO [facility] Last Admin: 12/05/16 22:48 Dose: 0.4 mg - Labs Labs: 12/05/16 05:25 12/05/16 05:25 PT 11.2 SECONDS (9.6-11.2) 12/04/16 11:00 INR 1.08 (0.92-1.08) 12/04/16 11:00 APTT 30.9 SECONDS (23.3-32.5) 12/04/16 11:00 - Constitutional Appears: No Acute Distress - Head Exam Head Exam: NORMAL INSPECTION - Eye Exam Eye Exam: PERRL - ENT Exam ENT Exam: Normal Oropharynx - Neck Exam Neck Exam: Normal Inspection - Respiratory Exam Respiratory Exam: Decreased Breath Sounds (at bases), Rales (dry crackles at bases), Wheezes (scattered) - Cardiovascular Exam Cardiovascular Exam: REGULAR RHYTHM - Extremities Exam Additional comments: Varicose Veins. - Back Exam Back Exam: NORMAL INSPECTION - Neurological Exam Neurological Exam: Alert, Oriented x3 Additional comments: Generalized weakness. - Psychiatric Exam Psychiatric exam: Normal Mood - Skin Skin Exam: Warm Assessment and Plan - Assessment and Plan (Free Text) Assessment: COPD Exacebation improved , ILD chronic Plan: Pulmonary cleared for discharge , ILD work up as out Patient.
[2016-12-06] MEDS ORDERED: Pneumococcal 23-Valent Vaccine IM ONE (15:00)
--- NOTE | 2016-12-08 08:17 | PQF SEPSIS ---
Dr. Hayden pt was admitted with possible sepsis. After study was diagnosis of sepsis ruled in or out? This form is a permanent part of the medical record Clarification of your documentation is requested to better reflect the severity of illness and intensity of treatment of your patient. Indicators present [] Temp < 96.8 or > 100.4 [] WBC count > 12,000/mm3 or <000/mm3 or 10% immature neutrophils [] Heart Rate > 90 [] Respiratory Rate > 20 [] Fever or hypothermia [] Chills [] Positive blood cultures [] Hypotension [] Metabolic acidosis (Elevated lactate level, anion gap or reduced blood pH) [] Acute confusion /Altered Mental Status [] Shock [] Other: [] Location in the medical record that reflects the above clinical findings: [] Treatment Provided: [] PHYSICIAN'S RESPONSE Based on your medical judgment of the clinical indicators outlined above, are you treating this patient for a known or suspected: [] Sepsis / Septicemia Please specify organism if known [] [] SIRS (Systemic Inflammatory Response Syndrome) [] Severe Sepsis (Sepsis with Associated Organ Dysfunction) [] Fever of Unknown Origin [] Other, please indicate: [] [] If Unable to Determine, please check the box, sign and date. Present On Admission (POA) Indicator: [] Present at the time of admission [] Not present at the time of admission [] Clinically Undetermined In responding to this query, please exercise your independent professional judgment. The fact that a question is asked does not imply that any particular answer is desired or expected. Thank you for your clarification on this documentation. If you have any questions please call:[ ] * Thank you, [ ]Nat Chandler real estate assistant JAMAL
--- NOTE | 2016-12-08 08:23 | PQF PNEUMO ---
Dr. Hayden pt was admitted with shortness of breath and possible pneumonia. After study was pt admitted and treated for a diagnosis of pneumonia? This form is a permanent part of the medical record Clarification of your documentation is requested to better reflect the severity of illness and intensity of treatment of your patient. Indicators present [] Documented diagnosis of pneumonia [] X-ray findings: [] Positive Sputum cultures [] Cough w/ fever [] Abnormal lungs sounds [] Poor gag reflex [] Speech consults/swallow evaluation [] Vent dependence [] Other: [] Location in the medical record that reflects the above clinical findings: [] Treatment Provided: [] PHYSICIAN'S RESPONSE Based on your medical judgment of the clinical indicators outlined above, are you treating this patient for a known or suspected: [] Aspiration pneumonia [] Community acquired pneumonia [] Ventilator associated pneumonia [] Viral pneumonia [] Bacterial pneumonia Please specify organism: [] [] Other, please indicate [] If Unable to Determine, please check the box, sign and date. Present On Admission (POA) Indicator: [] Present at the time of admission [] Not present at the time of admission [] Clinically Undetermined In responding to this query, please exercise your independent professional judgment. The fact that a question is asked does not imply that any particular answer is desired or expected. Thank you for your clarification on this documentation. If you have any questions please call:[ ] * Thank you, [ ]Nat Chandelr nurse supervisor JAMAL
== END 2016-12-06 15:10 | disposition home or self-care (01) | DRG 88 ==
LOC: H.ER 10:25 → H.ERHOLD 12:22 → H.TEL 14:06
PROVIDERS: ADMIT Family Medicine; ATTEND Family Medicine
PROC: 3E0234Z Introduction of Serum, Toxoid and Vaccine into Muscle, Percutaneous Approach (ICD-10-PCS; principal; 2016-12-06)
DX: J44.1 Chronic obstructive pulmonary disease with (acute) exacerbation (principal); J84.10 Pulmonary fibrosis, unspecified; I10 Essential (primary) hypertension; E78.00 Pure hypercholesterolemia, unspecified; N40.0 Benign prostatic hyperplasia without lower urinary tract symptoms; Z23 Encounter for immunization; R91.8 Other nonspecific abnormal finding of lung field